=== PATIENT | female | born 1945 | race Caucasian/White ===

== ENCOUNTER 2019-05-13 17:49 | Outpatient (REF) | payer OTHER, SELFPAY ==
[2019-05-13 19:39] LABS: Anion Gap 10.1 mmol/L (3-11); BUN 18 mg/dL (7-18); CO2 27.9 mmol/L (21.0-32.0); CREATININE 0.88 mg/dL (0.55-1.02); Calcium 8.8 mg/dL (8.5-10.1); Chloride 105 mmol/L (98-107); Glucose 90 mg/dL (74-106); Potassium 3.7 mmol/L (3.5-5.1); Sodium 143 mmol/L (136-145); TSH 2.78 uIU/mL (0.36-3.74)
== END 2019-05-13 18:09 ==
LOC: NCHCN 17:49
PROVIDERS: PCP Internal Medicine; Visit Provider Internal Medicine
DX: R05 Cough (principal); L40.8 Other psoriasis; I10 Essential (primary) hypertension
CPT/HCPCS: 80048; 84443

== ENCOUNTER 2021-10-18 10:16 | Emergency (ER) | payer MEDICARE, SELFPAY ==
[2021-10-18 10:21] VITALS: BP 186/100; PULSE 85; RESP 16; TEMP 36.8
--- OUTSIDE RECORDS SUMMARY | 2021-10-18 10:23 | XMS_ITS | Encounter Summary ---
:1945 Author Organization [facility] Address [address] [place] [id number] Care Team Providers Name Role Phone Bonilla Blake MD Primary Care Provider Encounter Details Date Type Department Care Team Description 06/09/2012 Results Only [facility] Pedro Russell am, MD Services - [address] [address] Social History Tobacco Use Types Packs/Day Years Used Date Never Assessed Sex Assigned at Date Recorded Not on file documented as of this encounter Plan of Treatment Not on filedocumented as of this encounter Procedures Procedure Name Priority Date/Time Associated Diagnosis Comme nts PAP TEST- RESULT Routine 06/09/2012 0:00 EST Resu lts for this ONLY procedure are i n the results section. documented in this encounter Results PAP TEST- RESULT ONLY (06/09/2012 0:00 EST) Pathology Report: CYTOPATHOLOGY REPORT [facility] Reports generated via electronic interface contain kobe ginal data; however they are lacking the format of the original re port. Caution should be taken when reading/interpreting unfo rmatted reports. Name: ? NANCY RIGGS ? Accession #: ? [id number] ? : ? 1945 (Age: 67) ??F ?Collect Da te: ? 06/09/2012 ? Location: ? [facility] ? Receive Date: ? 013 ? Provider: WESTON RUSSELL MD Copy to: ? Final Report SPECIMEN ADEQUACY ? Satisfactory for Evaluation - transformation zone component present GENERAL CATEGORIZATION ? Negative for Intraepithelial Lesion or Malignan cy ?? Last Menstrual Period: 1999 Previous Gynecologic Pathology: ASC-US: 06/12, 04/17 Other: Additional clinical information: paps WNL 01/12 , 04/16 Specimen/Source: ??Pap Test, Cervix/Endocervix, ThinPr ep Imaging System with manual evaluation Document reviewed and electronically signed by: ? Dank Martines, CT(ASCP) ? Report ??Date: 06/16/2012 11:11 HPV with Pap Test ? Date Ordered: ? 06/15/2012 ? Status: ?? Signed Out ?Date Complete: ? 06/18/2012 ? By: ??S ystem Interface ? Date Reported: ? 06/18/2012 ? Interpretation RESULT: Negative for HPV. No E6 or E7 mRNA is detected from HPV types 16,18,31,3 3,35, 39,45,51,52,56,58,59,66, and 68 by main entree cook and cashier media leeann amplification. Comments Document reviewed and electronically signed by: ? System Interface ? Report date: 06/18/2012 By the signature above, the attending physician certif ies that he/she has personally conducted a gross and/or microscopic examin ation of the described specimens and rendered or confirmed the above diagnosi s. End of Report Specimen Performing Organization Address City/State/ZIP Code Phon e Number [facility] [address] [place] [address] SERVICES [facility] [address] [place] [address] documented in this encounter Visit Diagnoses Not on filedocumented in this encounter Care Teams Administrative Officer Relationship Specialty Start Date End Date Bonilla Blake MD PCP - General 11/20/09 [address] [place] [address] documented as of this encounter
--- OUTSIDE RECORDS SUMMARY | 2021-10-18 10:23 | XMS_ITS | Encounter Summary ---
:1945 Author Organization [facility] Address [address] [place] [address] Care Team Providers Name Role Phone Unavailable Primary Care Provider Unavailable Encounter Details Date Type Department Care Team Description 02/09/2001 Results Only [facility] - Aniket Paulino MD conversion [address] [place] [address] Social History Tobacco Use Types Packs/Day Years Used Date Never Assessed Sex Assigned at Date Recorded Not on file documented as of this encounter Plan of Treatment Not on filedocumented as of this encounter Procedures Procedure Name Priority Date/Time Associated Diagnosis Comme nts CYTOPATHOLOGY Routine 02/09/2001 0:00 EST Results for this procedure are i n the results section . documented in this encounter Results CYTOPATHOLOGY (02/09/2001 0:00 EST) Pathology Report: CYTOPATHOLOGY REPORT [facility] Reports generated via electronic interface contain kobe ginal data; however they are lacking the format of the original re port. Caution should be taken when reading/interpreting unfo rmatted reports. Name: ? JAELYN RIGGS ? Accession #: ? [id number] : ? 1945 (Age: 55) ??F ?Collect Date: ? 01/13 Location: ? [facility] ? Receive Date : ? 02/10/2001 Provider: ?ANIKET ROBERTO MD Copy to: ? Specimen/Source: ?ThinPrep Pap Test, Cervix/ Endocervix Last Menstrual Period: ? Previous Gynecologic Pathology: ? ASC-US: 07/01/00 ? SPECIMEN ADEQUACY ? Satisfactory for evaluation. GENERAL CATEGORIZATION ? Benign Cellular Changes DESCRIPTIVE DIAGNOSIS ? Reactive cellular oriana nges associated with inflammation present (includes repair). ? Document reviewed and electronically signed by: ? Crista Her MD ? Report Date: ??02/13/2001 16:15 End of Report Specimen Performing Organization Address City/State/ZIP Code Phon e Number [facility] [address] [place] [address] SERVICES [facility] [address] [place] [address] documented in this encounter Visit Diagnoses Not on filedocumented in this encounter
--- OUTSIDE RECORDS SUMMARY | 2021-10-18 10:23 | XMS_ITS | Encounter Summary ---
:[address] [facility] Address [address] [place] [address] Care Team Providers Name Role Phone Unavailable Primary Care Provider Unavailable Encounter Details Date Type Department Care Team Description 05/06/2003 Results Only [facility] - Aniket Paulino MD conversion [address] [place] [address] Social History Tobacco Use Types Packs/Day Years Used Date Never Assessed Sex Assigned at Date Recorded Not on file documented as of this encounter Plan of Treatment Not on filedocumented as of this encounter Procedures Procedure Name Priority Date/Time Associated Diagnosis Comme nts CYTOPATHOLOGY Routine 05/06/2003 0:00 EST Results for this procedure are i n the results section . documented in this encounter Results CYTOPATHOLOGY (05/06/2003 0:00 EST) Pathology Report: CYTOPATHOLOGY REPORT [facility] Reports generated via electronic interface contain kobe ginal data; however they are lacking the format of the original re port. Caution should be taken when reading/interpreting unfo rmatted reports. Name: ? JAELYN RIGGS ? Accession #: ? [id number] : ? 1945 (Age: 58) ??F ?Collect Date: ? 04/15 Location: ? [facility] ? Receive Date : ? 05/09/2003 Provider: ?ANIKET ROBERTO MD Copy to: ? Specimen/Source: ?ThinPrep Pap Test, Cervix/ Endocervix Last Menstrual Period: ? 04/14/02 Other: ? Additional clinical information: Fibroid uterus ? SPECIMEN ADEQUACY ? Satisfactory for Evaluation - transformation zone component present GENERAL CATEGORIZATION ? Epithelial Cell Abnormality INTERPRETATION ? Squamous Cell Abnormality - Atypical squamous c ells, undetermined significance. EDUCATIONAL NOTES/RECOMMENDATIONS ? [facility] recommends katina wing the 2001 Consensus Guidelines for the Management of Women with Cervical Cytological Abnormalities (JAM A,2002;287:2120-9). Management algorithms have b een distributed by [facility] and are available online at www.ASCCP.org. ? Document reviewed and electronically signed by: ? BRYANT DILLON MD [facility] ? Report Date: ??05/16/2003 16:29 End of Report Specimen Performing Organization Address City/State/ZIP Code Phon e Number [facility] [address] [place] [address] SERVICES [facility] [address] [place] [address] documented in this encounter Visit Diagnoses Not on filedocumented in this encounter
--- OUTSIDE RECORDS SUMMARY | 2021-10-18 10:23 | XMS_ITS | Encounter Summary ---
:1945 Author Organization [facility] Address [address] [place] [address] Care Team Providers Name Role Phone Unavailable Primary Care Provider Unavailable Encounter Details Date Type Department Care Team Description 07/01/2000 Results Only [facility] - Aniket Paulino MD conversion [address] [place] [address] Social History Tobacco Use Types Packs/Day Years Used Date Never Assessed Sex Assigned at Date Recorded Not on file documented as of this encounter Plan of Treatment Not on filedocumented as of this encounter Procedures Procedure Name Priority Date/Time Associated Diagnosis Comme nts CYTOPATHOLOGY Routine 07/01/2000 0:00 EST Results for this procedure are i n the results section . documented in this encounter Results CYTOPATHOLOGY (07/01/2000 0:00 EST) Pathology Report: CYTOPATHOLOGY REPORT [facility] Reports generated via electronic interface contain kobe ginal data; however they are lacking the format of the original re port. Caution should be taken when reading/interpreting unfo rmatted reports. Name: ? JAELYN RIGGS ? Accession #: ? [id number] : ? 1945 (Age: 55) ??F ?Collect Date: ? 06/13 Location: ? [facility] ? Receive Date : ? 07/03/2000 Provider: ?ANIKET ROBERTO MD Copy to: ? Specimen/Source: ?Conventional Pap Test, Cer vix/Endocervix Last Menstrual Period: ? 06/17/00 Menstrual/ Status: ? Irregular ? SPECIMEN ADEQUACY ? Satisfactory for evaluation. GENERAL CATEGORIZATION ? Epithelial Cell Abnormality DESCRIPTIVE DIAGNOSIS ? Atypical squamous cells of undetermined signifi cance (ASCUS), favor reactive process. Reactive cellular changes associated with inflammation present (includes repair). RECOMMENDATION ? Recommend repeat Pap test in 3-6 months or further follow up, as clinically indicated. ? Document reviewed and electronically signed by: ? BRYANT DILLON MD [facility] ? Report Date: ??07/04/2000 16:48 End of Report Specimen Performing Organization Address City/State/ZIP Code Phon e Number [facility] [address] [place] [address] SERVICES [facility] [address] [place] [address] documented in this encounter Visit Diagnoses Not on filedocumented in this encounter
--- OUTSIDE RECORDS SUMMARY | 2021-10-18 10:23 | XMS_ITS | Encounter Summary ---
:1945 Author Organization [facility] Address [address] [place] [address] Care Team Providers Name Role Phone Unavailable Primary Care Provider Unavailable Encounter Details Date Type Department Care Team Description 04/30/2002 Results Only [facility] - Aniket Paulino MD conversion [address] [place] [address] Social History Tobacco Use Types Packs/Day Years Used Date Never Assessed Sex Assigned at Date Recorded Not on file documented as of this encounter Plan of Treatment Not on filedocumented as of this encounter Procedures Procedure Name Priority Date/Time Associated Diagnosis Comme nts CYTOPATHOLOGY Routine 04/30/2002 0:00 EST Results for this procedure are i n the results section . documented in this encounter Results CYTOPATHOLOGY (04/30/2002 0:00 EST) Pathology Report: CYTOPATHOLOGY REPORT [facility] Reports generated via electronic interface contain kobe ginal data; however they are lacking the format of the original re port. Caution should be taken when reading/interpreting unfo rmatted reports. Name: ? JAELYN RIGGS ? Accession #: ? [id number] : ? 1945 (Age: 57) ??F ?Collect Date: ? 04/14 Location: ? [facility] ? Receive Date : ? 05/04/2002 Provider: ?ANIKET ROBERTO MD Copy to: ? Specimen/Source: ?ThinPrep Pap Test, Cervix/ Endocervix Last Menstrual Period: ? 04/16/02 Menstrual/ Status: ? Irregular Other: ? Additional clinical information: Fibroid ut. ? SPECIMEN ADEQUACY ? Satisfactory for Evaluation - transformation zone component present GENERAL CATEGORIZATION ? Negative for Intraepithelial Lesion or Malignan cy ? Document reviewed and electronically signed by: ? NUSRAT Jade(ASCP) ? Report Date: ??05/05/2002 08:24 End of Report Specimen Performing Organization Address City/State/ZIP Code Phon e Number [facility] [address] [place] [phone] SERVICES [facility] [address] [place] [address] documented in this encounter Visit Diagnoses Not on filedocumented in this encounter
--- NOTE | 2021-10-18 10:29 | ED.GENADUL_ITS ---
Discharge Plan Disposition Patient Disposition: HOME Condition: Stable Discharge Details Clinical Impression: Low back pain with right-sided sciatica Primary Care Provider: Bonilla Blake ED Provider: Baylee Sebastian Home Meds and New Rx's Prescriptions: New methocarbamol 500 mg tablet 500 mg PO Q6H PRN (Reason: muscle spasm) Qty: 14 0RF prednisone 20 mg tablet See Rx Instructions .ROUTE .COMPLEX Qty: 18 0RF Rx Instructions: Take 3 tabs daily for 3 days, then 2 tabs daily for 3 days, then 1 tab daily for 3 days. Continued multivitamin [Daily Multi-Vitamin] 1 EACH tablet 1 tab PO DAILY lisinopril 20 MG tablet 20 mg PO DAILY aspirin [Ecotrin Low Strength] 81 MG tablet,delayed release (DR/EC) 81 mg PO DAILY triamterene-hydrochlorothiazid [Dyazide] 1 EACH capsule 25 - 37.5 mg PO DAILY simvastatin 20 MG tablet 20 mg PO DAILY acetaminophen-codeine [Tylenol-Codeine #3] 1 TAB tablet 1 tab PO Q3H PRN PRN (Reason: Pain) Discharge Instructions Instructions: Sciatica (ED), Low Back Strain (ED) Additional Instructions: Alternate ice and heat to the affected area(s) several times daily for 20 minutes at a time. Alternate tylenol and motrin as needed and directed for pain. Prescription for steroids and muscle relaxers were sent electronically to your pharmacy. Follow-up with your primary care doctor in 1 week. Return to the emergency department with any worsening or new concerning symptoms such as bowel or bladder incontinence, difficulty ambulating, worsening pain or any other concerns. Discharge Data Discharge Date/Time-TO BE ENTERED AT DEPARTURE: 10/18/21 11:19 Discharge Physician: Baylee Sebastian Medical Decision Making 76-year-old female with a history of sciatica presents with right lower back and buttock pain consistent with her usual sciatica flare. No cauda equina symptoms. Blood pressure hypertensive at 186/100. Patient otherwise appears comfortable and nontoxic. She was able to ambulate back to the room. She has right lumbar paraspinal tenderness but no evidence of trauma, cellulitis or step-off. She is neurovascularly intact. No focal deficits. History and presentation does not appear consistent with cauda equina syndrome or fracture and do not see an indication for imaging at this time and pt is agreeable. She was given an IM injection of Toradol, p.o. prednisone and p.o. methocarbamol here. She declined p.o. benzodiazepines and narcotic pain medication due to sensitivity and side effects of dizziness and nausea. Prescriptions for prednisone and muscle relaxer sent electronically to her pharmacy. She was advised to follow-up with her primary care doctor for evaluation and consideration for cortisone injection or physical therapy if indicated. Usual and customary return precautions given prior to discharge. Medical Records Medical records reviewed: Yes I reviewed the patient's medical records. HPI General Mode of arrival: ambulatory . Date/Time Provider Initiated Documentation: 10/18/21 10:27 . Limitations to Documentation: no limitations . Information obtained by: patient . HPI Narrative: Patient is a 76-year-old female with a history of sciatica who presents to the ED with a complaint of right sided lower back pain consistent with her usual flares of sciatica. Patient states she usually experiences 4-5 flareups of her sciatica yearly and states this is consistent with a usual flare. She denies any recent injury. She states she usually sees her primary care doctor and received an intramuscular injection of the steroid and another medication which she cannot remember. She states she usually does not take oral steroids and is very sensitive to benzodiazepines and narcotic pain medication but the 1 intramuscular injection uses enough to relieve her pain. She states she called her primary care doctor's office and they were on vacation. He states she was offered to get into [facility] but they were unable to see her today. Patient denies any abdominal pain, bowel or bladder incontinence, saddle anesthesia, leg weakness or numbness. Her last dose of Tylenol and naproxen was last night. Related Data Home Medications Medication Instructions Recorded Confirmed aspirin 81 mg tablet,delayed 81 mg PO DAILY 01/15/13 01/18/13 release (Ecotrin Low Strength) lisinopril 20 mg tablet 20 mg PO DAILY 01/15/13 10/18/21 multivitamin (Daily Multi-Vitamin 1 tab PO DAILY 01/15/13 01/15/13 tablet) simvastatin 20 mg tablet 20 mg PO DAILY 01/15/13 10/18/21 triamterene 37.5 25 - 37.5 mg PO DAILY 01/15/13 10/18/21 mg-hydrochlorothiazide 25 mg capsule (Dyazide) acetaminophen 300 mg-codeine 30 mg 1 tab PO Q3H PRN PRN Pain 01/22/13 01/22/13 tablet (Tylenol-Codeine #3) methocarbamol 500 mg tablet 500 mg PO Q6H PRN muscle spasm #14 10/18/21 tabs prednisone 20 mg tablet See Rx Instructions .Route 10/18/21 .COMPLEX #18 tabs Previous Rx's Medication Instructions Recorded methocarbamol 500 mg tablet 500 mg PO Q6H PRN muscle spasm #14 10/18/21 tabs prednisone 20 mg tablet See Rx Instructions .Route 10/18/21 .COMPLEX #18 tabs Allergies Allergy/AdvReac Type Severity Reaction Status Date / Time sulfamethoxazole Allergy Mild Unverified 10/18/21 10:26 [From Bactrim] trimethoprim [From Bactrim] Allergy Mild Unverified 10/18/21 10:26 meperidine HCl [From Demerol] Allergy Unknown Unverified 01/22/13 09:00 Sulfa (Sulfonamide Allergy Unknown Unverified 01/22/13 09:00 Antibiotics) General Stated Complaint: Nk/Back Pain MEHREEN: 4 Review of Systems All systems reviewed & are unremarkable except as noted in HPI and below Constitutional Constitutional: Denies chills, Denies excessive sweating, Denies fatigue, Denies fever(s), Denies weakness and Denies weight loss Eyes Eyes: Reports system reviewed and no additional complaints, except as documented and Denies blurry vision ENT Ears, Nose, Mouth, and Throat: Denies vertigo, Denies dizziness, Denies otalgia, Denies nasal congestion, Denies sore throat and Denies throat swelling Cardiovascular Cardiovascular: Denies chest pain, Denies syncope, Denies rapid heart rate and Denies dyspnea Respiratory Respiratory: Denies chest congestion, Denies cough, Denies pain on inspiration and Denies dyspnea Gastrointestinal Gastrointestinal: Denies abdominal pain, Denies diarrhea and Denies vomiting Genitourinary Genitourinary: Denies hematuria, Denies dysuria and Denies flank pain Musculoskeletal Musculoskeletal: Reports back pain and Denies joint swelling Integumentary/Breasts Skin/Breast: Denies lesions and Denies rash Neurologic Neurologic: Denies behavioral changes, Denies confusion, Denies vertigo, Denies dizziness, Denies syncope, Denies localized weakness and Denies weakness Psychiatric Psychiatric: Denies behavioral changes, Denies confusion and Denies depression Endocrine Endocrine: Denies excessive sweating and Denies fatigue Hematologic/Lymphatic Hematologic/Lymphatic: Denies easy bruising and Denies lymphadenopathy Allergic/Immunologic Allergic/Immunologic: Denies throat swelling PFSH All Active Problems (Updated 10/18/21 @ 11:13 by Baylee Sebastian DO) Low back pain with right-sided sciatica (Acute) Medical History (Updated 10/18/21 @ 11:13 by Baylee Sebastian DO) Arthritis HTN (hypertension) Hx of hyperlipidemia Lupus Sciatica Surgical History (Updated 10/18/21 @ 11:11 by Baylee Sebastian DO) History of tonsillectomy Social History Smoking/Tobacco Use Status: Former Tobacco Use Smoking risk assessment performed?: Yes Alcohol Intake: never Drug use: Never Substance use type: does not use Do you feel safe at home: Yes Do you feel safe in your relationship?: Yes Exam Const General: cooperative Orientation: alert, awake and oriented x3 HENMT Head: normal to inspection Ears: hearing grossly normal bilaterally, external ears normal and TM's normal bilaterally General nose exam: external nose normal Face and sinus: normal facial exam Mouth: oral mucosae normal Teeth and gingiva: dentition normal Throat: posterior oropharynx normal Eyes General: appearance normal, both eyes and all related structures Eyelids: eyelids normal Pupils: PERRL EOM: EOM intact bilaterally Neck Neck: normal visual inspection Lymphatic: no lymphadenopathy noted Chest Chest: normal inspection of the chest Resp Effort & Inspection: normal respiratory effort and able to speak in complete sentences Auscultation: clear to auscultation bilaterally Cardio Rate: regular rate Rhythm: regular rhythm GI Inspection: normal to inspection Palpation: soft, not firm, no guarding, no hepatosplenomegaly, no masses and nontender Auscultation: hypoactive bowel sounds Back/Spine/Pelvis Thoracic/Lumbar Spine: straight leg raise negative bilaterally Back/spine/pelvis image: 1. Tenderness to palpation R paraspinal lumbar region. There is no erythema, edema, ecchymosis, rash, lesions, abrasions, lacerations or step-off. No midline spinal tenderness. Skin General skin exam: no rashes or lesions noted Neuro General: patient alert and patient awake Cognition: normal cognition Speech: speech normal Gait: normal gait Motor: muscle tone normal throughout and strength 5/5 throughout Sensory Exam: no sensory deficits noted DTR's: Rt Patellar: 1+, Lt Patellar: 1+, Rt Ankle: 1+ and Lt Ankle: 1+ Plantar Reflexes: Equivocal: bilateral (negative babinski b/l ) Extrem General: normal to inspection, full ROM and capillary refill normal Other: B/L DP/PT pulses intact. Psych Appearance: grossly normal Mental Status: mental status grossly normal Speech and Movement: speech and movement normal Affect: normal affect Thought Process: normal Course Vital Signs Vital signs: Vital Signs Temperature 98.2 F 10/18/21 10:21 Pulse 85 10/18/21 10:21 Respiratory Rate 16 10/18/21 10:21 Blood Pressure 186/100 H 10/18/21 10:21 Temperature 98.2 F 10/18/21 10:21 Pulse 85 10/18/21 10:21 Respiratory Rate 16 10/18/21 10:21 Blood Pressure 186/100 H 10/18/21 10:21 Pain Level 10 10/18/21 10:21 Comment 10/18/21 10:21
[2021-10-18] MEDS: Ketorolac 60 MG/2 ML VIAL IM (11:08)
[2021-10-18] MEDS: Methocarbamol 500 MG TAB PO (11:08)
[2021-10-18] MEDS: predniSONE 20 MG TAB 60 MG PO (11:08)
[2021-10-18 11:15] VITALS: BP 154/82; PULSE 74; RESP 16; O2SAT 99
== END 2021-10-18 11:19 | disposition home or self-care (01) ==
PROVIDERS: Emergency Provider Physician Assistant; PCP Internal Medicine
DX: M54.41 Lumbago with sciatica, right side (principal)
CPT/HCPCS: 96372; 99284; 99283; J1885; J7512

== ENCOUNTER 2022-09-04 14:42 | Outpatient (REF) | payer MEDICARE, SELFPAY ==
[2022-09-04 20:13] LABS: Anion Gap 9.8 mmol/L (3-11); BUN 19 mg/dL (7-18); CO2 28.2 mmol/L (21.0-32.0); Calcium 9.7 mg/dL (8.5-10.1); Chloride 105 mmol/L (98-107); Estimated GFR 58.02 (mL/min/1.73m2); Glucose 82 mg/dL (74-106); Potassium 3.4 mmol/L (3.5-5.1); Sodium 143 mmol/L (136-145)
== END 2022-09-04 14:43 | disposition home or self-care (01) ==
LOC: NCHCN 14:42
PROVIDERS: PCP Internal Medicine; Visit Provider Internal Medicine
DX: I10 Essential (primary) hypertension (principal); E66.9 Obesity, unspecified
CPT/HCPCS: 80048; 84443

== ENCOUNTER 2023-09-02 08:24 | Outpatient (REF) | payer MEDICARE, SELFPAY ==
--- NOTE | 2023-09-02 07:30 | SKI_PTH ---
PATIENT: Nancy Lopez LOC: [facility] U#:[id number] AGE/SX: 78/F ROOM: RE09/02/[address]: Mio Gonzalez MD : 1945 BED: DIS: 09/02/2023 SPEC #: [id number] RECD: 09/02/23 15:53 STATUS: ASHLIE REQ #: [id number] CAMPOS: 09/02/23 07:[address]: Mio Gonzalze DEPT: Surgical Specimen RECD BY: Hui Moore ENTERED: 09/02/23 15:54 SP TYPE: SKI OTHR DR: Bonilla Blake Tissues: 1 - SKIN BIOPSY(SHAVE/PUNCH) Procedures: SKIN LEVEL 4 Comments: [id number]
== END 2023-09-02 08:25 | disposition home or self-care (01) ==
LOC: LBN 08:24
PROVIDERS: PCP Internal Medicine; Visit Provider Otolaryngology
DX: L98.9 Disorder of the skin and subcutaneous tissue, unspecified (principal); H61.032 Chondritis of left external ear
CPT/HCPCS: 88305

== ENCOUNTER 2024-09-09 16:11 | Outpatient (REF) | payer MEDICARE, SELFPAY ==
[2024-09-09 19:58] LABS: ALT 21 U/L (14-59); Anion Gap 6.7 mmol/L (3-11); BUN 22 mg/dL (7-18); CO2 30.3 mmol/L (21.0-32.0); CREATININE 1.1 mg/dL (0.55-1.02); Calcium 9.5 mg/dL (8.5-10.1); Calculated LDL 118 mg/dL (<100); Chloride 105 mmol/L (98-107); Cholesterol 197 mg/dL (<200); Estimated GFR 51.11 (mL/min/1.73m2); Glucose 91 mg/dL (74-106); HDL Cholesterol 45 mg/dL (>or=50); Potassium 3.8 mmol/L (3.5-5.1); Sodium 142 mmol/L (136-145); Triglyceride 171 mg/dL (<150)
[2024-09-09 20:19] LABS: Creatine Kinase 76 U/L (26-192)
== END 2024-09-09 16:12 | disposition home or self-care (01) ==
LOC: NCHCN 16:11
PROVIDERS: PCP Internal Medicine; Visit Provider Internal Medicine
DX: I10 Essential (primary) hypertension (principal); E78.5 Hyperlipidemia, unspecified
CPT/HCPCS: 80048; 80061; 82550; 84460